=== PATIENT | female | born 1990 | race African-American/Black ===

== ENCOUNTER 2018-11-26 09:18 | Emergency (ER) | payer OTHER ==
[2018-11-26 09:24] VITALS: BP 123/66; PULSE 101; TEMP 98.4; BMI 25.0
[2018-11-26] MEDS ORDERED: NAPROXEN 500 MG TABLET (FP) PO ONE (10:11)
[2018-11-26] MEDS ORDERED: ACETAMINOPHEN 500 MG TABLET (FP) PO ONE (10:18)
--- NOTE | 2018-11-26 10:24 | PDOC ---
History of Present Illness - General Chief Complaint: Eye Problem Stated Complaint: RT EYE PINK EYE Time Seen by Provider: 11/26/18 09:44 History Source: Patient Exam Limitations: No Limitations - History of Present Illness Initial Comments: 11/26/18 10:25 28 year old female with no significant medical or surgical history presents with complaints of irritated right eye, bodyaches and stuffy nose since yesterday. Patient reports redness and itching of right eye with yellowish drainage. Reports foreign body sensation in right eye, itching, yellowish drainage and burning. Reports bodyaches, stuffy nose with greenish mucus and throat pain since yesterday. STates taking ibuprofen with no relief of symptoms. Timing/Duration: 24 hours Severity: mild Modifying Factors: improves with: medication Associated Symptoms: reports: fever/chills, malaise Aspirin Received prior to arrival: Yes: no aspirin today Asa Contraindications(Core Measure): No: Allergy Beta Luiza Contraindications(Core Measure): Yes: Not Prescribed Beta Luiza Given by EMS(Core Measure): No Beta Luiza Taken at Home(Core Measure): No Beta Luiza Not Indicated at this Time(Core Measure): No Past History - Travel Traveled outside of the country in the last 30 days: No Close contact w/someone who was outside of country & ill: No - Past Medical History Allergies/Adverse Reactions: Allergies Allergy/AdvReac Type Severity Reaction Status Date / Time No Known Allergies Allergy Verified 11/26/18 09:24 Home Medications: Ambulatory Orders Naproxen [Naprosyn] 500 mg PO BID #14 tablet 11/26/18 COPD: No - Suicide/Smoking/Psychosocial Hx Smoking History: Current every day smoker Number of Cigarettes Smoked Daily: 10 Information on smoking cessation initiated: No Hx Alcohol Use: No Drug/Substance Use Hx: No Review of Systems - Review of Systems Able to Perform ROS?: Yes Is the patient limited Malay proficient: No Constitutional: Yes: Malaise. No: Chills, Fever HEENTM: Yes: Eye Pain, Throat Pain. No: Difficulty Swallowing Respiratory: No: See HPI, Orthopnea, Shortness of Breath, Stridor, Wheezing Cardiac (ROS): No: Chest Pain, Lightheadedness ABD/GI: No: Abdominal Distended, Difficulty Swallowing, Poor Appetite, Poor Fluid Intake, Vomiting : No: Burning, Dysuria, Discharge, Flank Pain, Hematuria, Incontinence, Pain Musculoskeletal: No: Joint Pain, Muscle Weakness, Neck Pain Integumentary: No: Erythema Neurological: No: Headache, Numbness *Physical Exam - Vital Signs Last Vital Signs Temp Pulse Resp BP Pulse Ox 98.4 F 101 H 16 123/66 100 11/26/18 09:21 11/26/18 09:21 11/26/18 09:21 11/26/18 09:21 11/26/18 09:21 - Physical Exam General Appearance: Yes: Nourished, Appropriately Dressed HEENT: positive: EOMI, KERWIN, TMs Normal, Scleral Icterus (R), Pharyngeal Erythema, Other (right eye with yellowish discharge on lashes, + ejected sclera) Neck: positive: Supple. negative: Lymphadenopathy (R), Lymphadenopathy (L) Respiratory/Chest: positive: Lungs Clear, Normal Breath Sounds Cardiovascular: positive: Regular Rhythm, Regular Rate, S1, S2 Medical Decision Making - Medical Decision Making 11/26/18 10:30 28 year old female with no significant medical or surgical history presents with complaints of irritated right eye, bodyaches and stuffy nose since yesterday. throat culture analgesia conjunctivitis Rx: naprosyn z-pack *DC/Admit/Observation/Transfer Diagnosis at time of Disposition: Conjunctivitis Qualifiers: Conjunctivitis type: acute Acute conjunctivitis type: bacterial Laterality: right Qualified Code(s): H10.31 - Unspecified acute conjunctivitis, right eye - Discharge Dispostion Disposition: HOME Condition at time of disposition: Good Decision to Admit order: No - Prescriptions Prescriptions: Naproxen [Naprosyn] 500 mg PO BID #14 tablet - Referrals Referrals: Jacquelyn Castro NP [Primary Care Provider] - - Patient Instructions Additional Instructions: Please wash hands frequently especially after touching eyes' Drink plenty fluids and rest Take medication with food and until completely finished. - Post Discharge Activity Forms/Work/School Notes: Back to Work
[2018-11-26] MEDS ORDERED: ACETAMINOPHEN 500 MG TABLET (FP) ONE (10:25)
[2018-11-26] MEDS ORDERED: ERYTHROMYCIN 0.5% OPHTHALMIC OINTMENT 3.5 GM TUBE OD ONE (10:34)
[2018-11-26] MEDS ORDERED: ERYTHROMYCIN 0.5% OPHTHALMIC OINTMENT 3.5 GM TUBE ONE (10:41)
== END 2018-11-26 10:46 | disposition home or self-care (01) ==
LOC: JERFT 09:18
DX: H10.31 Unspecified acute conjunctivitis, right eye (principal)
CPT/HCPCS: 87070; 87880; 99282-25